=== PATIENT | female | born 1990 | race Caucasian/White ===

== ENCOUNTER 2017-05-17 21:06 | Emergency (ER) | payer OTHER ==
[2017-05-17] MEDS ORDERED: Sodium Chloride 0.9% 1,000 ML IV ONE (21:35)
[2017-05-17 21:43] LABS: RBC URINE 1 /hpf (0-3); TRANSITIONAL EPITHIAL < 1 /hpf (0-3); URINE BACTERIA RARE (<OCC); URINE BILIRUBIN NEGATIVE (NEGATIVE); URINE BLOOD NEGATIVE (NEGATIVE); URINE COLOR Yellow (YELLOW); URINE GLUCOSE (UA) NORMAL (Normal); URINE KETONE NEGATIVE (NEGATIVE); URINE LEUKOCYTE ESTERASE NEG Leu/uL (Negative); URINE PROTEIN NEGATIVE (NEGATIVE); URINE UROBILINOGEN NORMAL mg/dL (0.2-1.0); WBC URINE 1 /hpf (0-5)
[2017-05-17 22:05] LABS: BASO # 0.1 K/uL (0.0-0.2); BASO % 0.5 % (0.0-2.0); EOS # 0.1 K/uL (0.0-0.7); LYMPH # 4.6 K/uL (1.0-4.3); LYMPH % 42.4 % (20.0-40.0); MEAN CELL VOLUME 90.4 fL (81.0-99.0); MEAN CORPUSCULAR HEMOGLOBIN 31.4 pg (27.0-31.0); MEAN CORPUSCULAR HGB CONC 34.7 g/dL (33.0-37.0); MEAN PLATELET VOLUME 9.7 fL (7.2-11.7); MONO # 0.7 K/uL (0.0-0.8); MONO % 6.4 % (0.0-10.0); NRBC % 0.1 % (0.0-2.0); RED CELL DISTRIBUTION WIDTH 12.4 % (11.5-14.5); WHITE BLOOD COUNT 10.9 K/uL (4.8-10.8)
[2017-05-17 22:14] LABS: CHLORIDE 104 mmol/L (98-107); POTASSIUM 3.5 mmol/L (3.6-5.2); SODIUM 139 mmol/L (132-148)
[2017-05-17 22:16] LABS: BILIRUBIN,TOTAL 0.5 mg/dL (0.2-1.3); CARBON DIOXIDE 21 mmol/L (22-30); GFR AFRICAN-AMERICAN > 60
[2017-05-17 22:17] LABS: ALB/GLOB RATIO 1.2 (1.0-2.1); ALKALINE PHOSPHATASE 104 U/L (38-126); ALT/SGPT 27 U/L (9-52); AST/SGOT 31 U/L (14-36); BLOOD UREA NITROGEN 11 mg/dL (7-17); CALCIUM 8.7 mg/dl (8.6-10.4); GLUCOSE,RANDOM 92 mg/dL (65-105); TOTAL PROTEIN 7.3 g/dL (6.3-8.3)
--- NOTE | 2017-05-17 23:21 | C.PDOC ---
History Of Present Illness 26 y/o female c/o suprapubic abdominal pain, on and off for the last 2 weeks. Denies dysuria, hematuria, nausea, vomiting, fever, cough, changes in PO intake , vaginal bleeding, or vaginal discharge. Patient unaware if she is . Time Seen by Provider: 05/17/17 21:35 Chief Complaint (Nursing): Abdominal Pain History Per: Patient History/Exam Limitations: no limitations Current Symptoms Are (Timing): Still Present Location Of Pain/Discomfort: Diffuse Radiation Of Pain To:: None Associated Symptoms: denies: Fever, Nausea, Vomiting, Diarrhea, Urinary Symptoms Recent travel outside of the [place]: No Abnormal Vaginal Bleeding: No Past Medical History Reviewed: Historical Data, Nursing Documentation, Vital Signs Vital Signs: Last Vital Signs Temp 98 F 05/17/17 23:48 Pulse 82 05/17/17 23:48 Resp 18 05/17/17 23:48 BP 112/70 05/17/17 23:48 Pulse Ox 97 05/18/17 00:25 - Medical History PMH: No Chronic Diseases Family History: States: Unknown Family Hx - Social History Hx Tobacco Use: No Hx Alcohol Use: No Hx Substance Use: No - Immunization History Hx Tetanus Toxoid Vaccination: No Hx Influenza Vaccination: No Hx Pneumococcal Vaccination: No Review Of Systems Except As Marked, All Systems Reviewed And Found Negative. Constitutional: Negative for: Fever, Chills Cardiovascular: Negative for: Chest Pain Respiratory: Negative for: Cough, Shortness of Breath Gastrointestinal: Positive for: Abdominal Pain. Negative for: Nausea, Vomiting , Diarrhea Genitourinary: Negative for: Hematuria, Vaginal Discharge, Vaginal Bleeding Skin: Negative for: Rash Physical Exam - Physical Exam Appears: Non-toxic, No Acute Distress Skin: Normal Color, Warm, Dry Head: Atraumatic, Normacephalic Oral Mucosa: Moist Chest: Symmetrical Cardiovascular: Rhythm Regular, No Murmur Respiratory: Normal Breath Sounds, No Rales, No Rhonchi, No Wheezing Gastrointestinal/Abdominal: Soft, No Tenderness, No Guarding, No Rebound Back: Normal Inspection, No CVA Tenderness Extremity: Normal ROM, Capillary Refill (< 2 sec. ) Neurological/Psych: Oriented x3, Normal Speech, Normal Cognition ED Course And Treatment - Laboratory Results Result Diagrams: 05/17/17 22:00 05/17/17 22:00 O2 Sat by Pulse Oximetry: 97 (RA) Pulse Ox Interpretation: Normal - CT Scan/US US TRANSVAGINAL Other Rad Studies (CT/US): Read By Radiologist, Radiology Report Reviewed CT/US Interpretation: FINDINGS: Gestation: A single intrauterine gestational sac is identified measuring 7.9 x 6.6 x 9.5 mm. The mean. gestational sac size is too small for dates. A well-formed yolk sac is present, measuring 1.9 mm. No. pole is identified. Placenta/amniotic fluid: Cannot be adequately evaluated due to the early gestational age. Uterus/cervix: As above. No myometrial mass. The cervix measures 3.6 cm, and is closed. Ovaries: Unremarkable in echogenicity and size. The right ovary measures 2.5 x 1.4 x 1.7 cm. The. left ovary measures 2.3 x 1.6 x 2.9 cm in. No mass. Free fluid: Free fluid is identified within the posterior cul-de-sac. IMPRESSION: Single intrauterine gestational sac, too small for dates. A well-formed yolk sac is present without a pole. Bloodwork, UA, ultrasound ordered and reviewed. Medical Decision Making Medical Decision Making: PLAN: Bloodwork, UA, ultrasound ordered and reviewed. PROGRESS: On reassessment, patient is resting comfortably, and is in no acute distress. Patient instructed to follow up with clinic/PMD within 1-2 days. Disposition - Disposition Referrals: [facility] [Outside] [facility] [Outside] [facility] [Outside] Disposition: HOME/ ROUTINE Disposition Time: 23:30 Condition: GOOD Additional Instructions: Thank you for letting us take care of you today. Your provider was Dr. Reynolds. You were treated for abdominal pain and . The emergency medical care you received today was directed at your acute symptoms. If you were prescribed any medication, please fill it and take as directed. It may take several days for your symptoms to resolve. Return to the Emergency Department if your symptoms worsen, do not improve, or if you have any other problems. Please contact your doctor or call one of the physicians/clinics you have been referred to that are listed on the Patient Visit Information form that is included in your discharge packet. Bring any paperwork you were given at discharge with you along with any medications you are taking to your follow up visit. Our treatment cannot replace ongoing medical care by a primary care provider (PCP) outside of the emergency department. Thank you for allowing the [facility] team to be part of your care today. Please start taking vitamins and follow up with the clinic for OB care. Instructions: Abdominal Pain in (ED) Forms: Gen Discharge Inst Niuean Print Language: SWEDISH - Clinical Impression Clinical Impression: - Scribe Statement The provider has reviewed the documentation as recorded by the Scribe SM Provider Attestation: All medical record entries made by the Jossue were at my direction and personally dictated by me. I have reviewed the chart and agree that the record accurately reflects my personal performance of the history, physical exam, medical decision making, and the department course for this patient. I have also personally directed, reviewed, and agree with the discharge instructions and disposition.
--- NOTE | 2017-05-17 23:29 | US ---
EXAM: US , Transabdominal and Transvaginal CLINICAL HISTORY: 26 years old, female; Screening exam; Other: R/O ectopic; 2 para 1 LMP: 04/14/2017. Serum beta-hCG is 7890 TECHNIQUE: Real-time transabdominal and transvaginal obstetrical ultrasound of the maternal pelvis and a first trimester with image documentation. Transvaginal imaging was used for better evaluation of the fetus and adnexa. COMPARISON: No relevant prior studies available. FINDINGS: Gestation: A single intrauterine gestational sac is identified measuring 7.9 x 6.6 x 9.5 mm. The mean gestational sac size is too small for dates. A well-formed yolk sac is present, measuring 1.9 mm. No pole is identified. Placenta/amniotic fluid: Cannot be adequately evaluated due to the early gestational age. Uterus/cervix: As above. No myometrial mass. The cervix measures 3.6 cm, and is closed. Ovaries: Unremarkable in echogenicity and size. The right ovary measures 2.5 x 1.4 x 1.7 cm. The left ovary measures 2.3 x 1.6 x 2.9 cm in. No mass. Free fluid: Free fluid is identified within the posterior cul-de-sac IMPRESSION: Single intrauterine gestational sac, too small for dates. A well-formed yolk sac is present without a pole. A small amount of free fluid within the posterior cul-de-sac.
[2017-05-17 23:49] VITALS: BP 112/70; PULSE 82; RESP 18; TEMP 98
[2017-05-18 00:25] VITALS: O2SAT 97
== END 2017-05-17 23:49 | disposition home or self-care (01) ==
LOC: C.ER 21:06
DX: O26.891 Other specified pregnancy related conditions, first trimester (principal); Z3A.00 Weeks of gestation of pregnancy not specified
CPT/HCPCS: 76805; 76817; 80053; 81001; 83690; 84702; 85025; 87086; 96360; 99285; J7040

== ENCOUNTER 2018-01-05 16:40 | Inpatient (IN) | payer MEDICAID, OTHER ==
--- NOTE | 2018-01-05 17:37 | OBADHP ---
Datetime: 01/05/2018 17:14 Admit Comment, IP Provider: Pt presents today for complaints of ROM since 5:00am. Nitrazine positive , no pooling. PT is GBS+. POBHx: 03/2009. Female PMH: + PPD, obesity, Chlamydia 2013 PSHx None PFHx: none Assessment: SROM @ 39 weeks. GBS+ 1) Admit 2) GBS+ : start iv abx 2) tachycardia. IV hydration for now. maternal temp 97 3) PROM: Admit induce labor. Pelvic Type - PN: Adequate Extremities - PN: Normal Abdomen - PN: Normal Back - PN: Normal Breast - PN: Normal Lungs - PN: Normal Heart - PN: Normal Thyroid - PN: Normal Neurologic - PN: Normal HEENT - PN: Normal General - PN: Normal Presentation-Admit: Vertex IP Fetus A Comments: tachycardia. 160s FHR - Baseline A Provider: 160 Membranes, Provider: Ruptured Contraction Comments Provider: none Comments, ACOG Physical Exam: bedside US done to confirm position on admission-> cephalic presentation. Gestation - Est Wks by US: 39.0 Pool Provider: Negative Nitrazine Provider: Positive Vital Signs Provider: Reviewed IP Chief Complaint: Suspected ruptured membranes NICHD Variability Prov Fetus A: Moderate 6-25bpm NICHD Accel Fetus A IP Provider: 15X15 FHR Category Provider Fetus A: Category I NICHD Decel Fetus A IP Provider: None Dilatation, Provider: 1 Effacement, Provider: 30 Station, Provider: -3 Genitourinary Exam: Normal DTRs - PN: Normal EGA AdmitDate IP: 39.1 IP Adm Impression: Term, intrauterine ; No Active Labor; Ruptured Membranes IP Admit Plan: Admit to unit; Initiate labor induction protocol
[2018-01-05 17:45] VITALS: BMI 26.1
[2018-01-05] MEDS ORDERED: Penicillin G 5 Million Unit Vial IVPB ONE ×2 (18:06→18:19)
[2018-01-05] MEDS ORDERED: Lactated Ringer's 1,000 ML IV SCH (18:15)
[2018-01-05] MEDS: Lactated Ringer's 1,000 ML IV SCH ×2 (18:30→20:57)
[2018-01-05 18:33] LABS: BASO % 0.5 % (0.0-2.0); EOS # 0.1 K/uL (0.0-0.7); EOS % 0.6 % (0.0-4.0); HEMOGLOBIN 12.8 g/dL (11.0-16.0); LYMPH # 2.4 K/uL (1.0-4.3); LYMPH % 29.6 % (20.0-40.0); MEAN CELL VOLUME 91.8 fL (81.0-99.0); MEAN CORPUSCULAR HEMOGLOBIN 31.6 pg (27.0-31.0); MEAN CORPUSCULAR HGB CONC 34.4 g/dL (33.0-37.0); MEAN PLATELET VOLUME 9.7 fL (7.2-11.7); MONO # 0.6 K/uL (0.0-0.8); MONO % 7.7 % (0.0-10.0); NEUT # 4.9 K/uL (1.8-7.0); NEUT % 61.6 % (50.0-75.0); RBC 4.06 Mil/uL (3.80-5.20); RED CELL DISTRIBUTION WIDTH 13.2 % (11.5-14.5)
[2018-01-05 18:45] LABS: ALBUMIN 3.4 g/dL (3.5-5.0); ALT/SGPT 11 U/L (9-52); AST/SGOT 24 U/L (14-36); BLOOD UREA NITROGEN 9 mg/dL (7-17); CALCIUM 8.7 mg/dl (8.6-10.4); GFR AFRICAN-AMERICAN > 60; GFR NON-AFRICAN AMERICAN > 60
--- NOTE | 2018-01-05 20:05 | OBPN ---
Datetime: 01/05/2018 17:14 IP Progress Plan Other: cervidil placed. IP Progress Impression: Reassuring heart rate; Rupture of membranes IP Informed Consent Obtain: Risks, Benefits and Alternatives Discussed IP Procedures: Sterile Vag Exam IP Progress Plan: Augmentation; Cervical Ripening Pool Provider: Negative Nitrazine Provider: Positive Membranes, Provider: Ruptured Contraction Comments Provider: irregular FHR - Baseline A Provider: 150s Gestation - Est Wks by US: 39.0 Presentation-Admit: Vertex IP Progress Note Comment: GBS+, first dose given at 6:30pm. SVE: /-3 irregular contractions. Min l insert cervidil. Vital Signs Provider: Reviewed NICHD Accel Fetus A IP Provider: 15X15 FHR Category Provider Fetus A: Category I NICHD Variability Prov Fetus A: Moderate 6-25bpm Dilatation, Provider: 2 Effacement, Provider: 30 Station, Provider: -3 NICHD Decel Fetus A IP Provider: None
[2018-01-05] MEDS ORDERED: Oxytocin 30 UNIT 30 UNITS/500 ML BAG IV ONE (22:55)
[2018-01-05] MEDS ORDERED: Oxytocin 30 UNIT 30 UNITS/500 ML BAG IV SCH (23:00)
[2018-01-06] MEDS ORDERED: Bupivacaine HCl/FentaNYL Cit 100 ML EPI ONE (01:35)
--- NOTE | 2018-01-06 05:51 | OBDS ---
DELIVERY PERSONNEL Nurse Reversing Mill Roller Certified: N/A Delivery Doctor: Theo Carrera MD Scrub Nurse: N/A Sample Carrier: Tammy Delarosa RN Anesthesiologist: DR GASPAR Software Programmer: BRYN Resident: NCarlene MATERNAL INFORMATION Delivery Anesthesia: Epidural Medications in Delivery: PITOCIN Estimated Blood Loss (ml): 200 Placenta Cultured: No Maternal Complications: None Provider Comments: The head delivered, atraumatically, The anterior and posterior shoulder del ivered. The cord was cut clamped and fetus handed to awaiting nurses. The placenta was delivered inta ct with 3 vessel cord. There was a second degree perineal laceration that was repaired with 2.0 vicry l. All spongle needle and instrument count was correct at the end of the procedure. LABOR SUMMARY EDC: 01/11/2018 00:00 No. Babies in Womb: 1 Attempted: No Labor Anesthesia: Epidural LABOR INFORMATION Reason for Induction: Premature Rupture of Membranes Reason for Induction Other: PREMATURE RUPTURE OF MEMBRANES Onset of Labor: 01/05/2018 05:00 Complete Dilatation: 01/06/2018 05:10 Cervical Ripening Agents: Cervidil Oxytocin: Augmentation Group B Beta Strep: Positive Antibiotics # of Doses: 4 Antibiotics Time of Last Dose: 0500 MEMBRANES Membranes Rupture Method: Spontaneous Rupture of Membranes: 01/05/2018 05:00 Length of Rupture (hrs): 24.43 Amniotic Fluid Color: Clear Amniotic Fluid Amount: Scant Amniotic Fluid Odor: Normal STAGES OF LABOR Stage 1 hrs: 24 Stage 1 min: 10 Stage 2 hrs: 0 Stage 2 min: 16 Stage 3 hrs: 0 Stage 3 min: 6 Total Time in Labor hrs: 24 Total Time in Labor min: 32 VAGINAL DELIVERY Episiotomy: None Laceration Extension: Second Degree Laceration Type: Perineal Laceration Repair: Yes Laceration Repair Note: perineal laceration repaired with 2.0 vicryl X 1 Sponge Count Correct: Yes Sharps Count Correct: Yes BABY A INFORMATION Infant Delivery Date/Time: 01/06/2018 05:26 Method of Delivery: Vaginal Born in Route : No : N/A Forceps: N/A Vacuum Extraction: N/A Shoulder Dystocia : No SHOULDER DYSTOCIA BABY A Delivery Date/Time: 01/06/2018 05:26 PRESENTATION/POSITION BABY A Presentation: Cephalic Cephalic Presentation: Vertex Breech Presentation: N/A PLACENTA INFORMATION BABY A Placenta Delivery Time : 01/06/2018 05:32 Placenta Method of Delivery: Spontaneous Placenta Status: Delivered SCORES BABY A Heart Rate 1 min: >100 bpm Resp Effort 1 min: Good Cry Reflex Irritability 1 min: Cough or Sneeze or Pulls Away Muscle Tone 1 min: Active Motion Color 1 min: Body [place], Extremities Blue Resuscitation Effort 1 min: N/A SCORE 1 MIN: 9 Heart Rate 5 min: >100 bpm Resp Effort 5 min: Good Cry Reflex Irritability 5 min: Cough or Sneeze or Pulls Away Muscle Tone 5 min: Active Motion Color 5 min: Body [place], Extremities Blue Resuscitation Effort 5 min: N/A SCORE 5 MIN: 9 INFORMATION BABY A Gestational Age at Delivery: 39.2 Gestational Status: Term Infant Outcome : Liveborn Infant Condition : Stable Infant Sex: Male IDENTIFICATION/MEDS BABY A ID Band Number: [id number] ID Band Location: Left Leg; Left Arm Sensor Applied: Yes Sensor Number: [id number] Sensor Location : Cord Clamp Vitamin K Given : Not Given Erythromycin Given: Not Given WEIGHT/LENGTH BABY A Birthweight (gms): 3630 Infant Weight (lb): 8 Infant Weight (oz): 0 Infant Length Inches: 20.00 Length cms: 50.8 CORD INFORMATION BABY A No. Cord Vessels: #3 Nuchal Cord : N/A Nuchal Cord Other: 0 True Knot: 0 Infant Suction: None ASSESSMENT BABY A Complications: None Complications Other: GBS+ Physical Findings at Delivery: Within Normal Limits Infant Respirations: Appears Normal Message Broker Developer/ALS Called : No Infant Care By: Maria ESQUIVEL RN Transferred To: Nursery
[2018-01-06] MEDS ORDERED: Oxycodone/Acetaminophen 5/325 mg Tab PO PRN (05:53)
[2018-01-06] MEDS ORDERED: Acetaminophen-Codeine 300/30 mg Tab PO PRN (05:53)
[2018-01-06] MEDS ORDERED: Benzocaine/Menthol 20%-0.5% Topical Spray (60 ml) TOP PRN (05:53)
[2018-01-06] MEDS ORDERED: Tdap Vaccine 0.5 ml Vial (10-64 yrs) IM ONE (05:53)
[2018-01-06] MEDS ORDERED: Varicella Virus Vaccine Inj SC ONE (05:53)
[2018-01-06] MEDS ORDERED: Measles, Mumps, and Rubella 0.5 ML VIAL SC ONE (05:53)
[2018-01-06] MEDS: Multiple Vitamins Tab PO SCH (13:16)
--- NOTE | 2018-01-07 09:19 | OBPN ---
Datetime: 01/05/2018 17:14 IP Progress Plan Other: cervidil removed @ 10:27pm. 50/-3. Start oxytocin IP Progress Note Comment: GBS+, second dose given. Pt checked /-3. Cervidil removed @ 10:27pm. s tart oxytocin.
[2018-01-07] MEDS: Multiple Vitamins Tab PO SCH (09:54)
[2018-01-07 11:16] LABS: BASO % 0.3 % (0.0-2.0); EOS % 0.4 % (0.0-4.0); HEMOGLOBIN 10.9 g/dL (11.0-16.0); LYMPH # 2.9 K/uL (1.0-4.3); LYMPH % 24.5 % (20.0-40.0); MEAN CELL VOLUME 92.4 fL (81.0-99.0); MEAN CORPUSCULAR HEMOGLOBIN 31.9 pg (27.0-31.0); MEAN CORPUSCULAR HGB CONC 34.5 g/dL (33.0-37.0); MEAN PLATELET VOLUME 9.6 fL (7.2-11.7); MONO # 0.7 K/uL (0.0-0.8); MONO % 5.6 % (0.0-10.0); NEUT # 8.2 K/uL (1.8-7.0); NEUT % 69.2 % (50.0-75.0); RBC 3.4 Mil/uL (3.80-5.20); RED CELL DISTRIBUTION WIDTH 13.4 % (11.5-14.5); WHITE BLOOD COUNT 11.9 K/uL (4.8-10.8)
[2018-01-08] MEDS ORDERED: Tdap Vaccine 0.5 ml Vial (10-64 yrs) IM ONE (10:15)
[2018-01-08] MEDS ORDERED: Measles, Mumps, and Rubella 0.5 ML VIAL SC ONE (10:15)
[2018-01-08] MEDS ORDERED: Varicella Virus Vaccine Inj SC ONE (10:15)
[2018-01-08] MEDS: Multiple Vitamins Tab PO SCH (10:58)
[2018-01-08 21:16] VITALS: BP 107/70; PULSE 90; RESP 18; TEMP 97; O2SAT 99
== END 2018-01-08 15:40 | disposition home or self-care (01) | DRG 775 ==
LOC: C.EROB 16:40 → C.4D 17:25 → C.4M 01-06 09:14
PROVIDERS: ADMIT Obstetrics & Gynecology; ATTEND Obstetrics & Gynecology
PROC: 10E0XZZ Delivery of Products of Conception, External Approach (ICD-10-PCS; principal; 2018-01-06)
PROC: 0KQM0ZZ Repair Perineum Muscle, Open Approach (ICD-10-PCS; 2018-01-06)
PROC: 3E0P7VZ Introduction of Hormone into Female Reproductive, Via Natural or Artificial Opening (ICD-10-PCS; 2018-01-06)
DX: O42.92 Full-term premature rupture of membranes, unspecified as to length of time between rupture and onset of labor (principal); Z37.0 Single live birth; O99.824 Streptococcus B carrier state complicating childbirth; O69.81X0 Labor and delivery complicated by cord around neck, without compression, not applicable or unspecified; O70.1 Second degree perineal laceration during delivery; O76 Abnormality in fetal heart rate and rhythm complicating labor and delivery; Z3A.39 39 weeks gestation of pregnancy

== ENCOUNTER 2019-01-04 11:44 | Emergency (ER) | payer MEDICAID, OTHER ==
[2019-01-04 11:53] VITALS: BMI 24.1
[2019-01-04 11:56] VITALS: BP 138/77; PULSE 81; RESP 18; TEMP 98.9; O2SAT 95
--- NOTE | 2019-01-04 15:19 | C.PDOC ---
History Of Present Illness 28 year old female presents to the ED complaining of headache for the last 5 days. Associated with bodyaches and throat pain ongoing for 3 days. Denies fever, chills, nausea, vomiting, diarrhea, chest pain, dizziness, nose congestion, or any other symptoms. Reports she has been taking Tylenol with minimal relief. Reports her child is also sick. Denies recent travels. HPI: Influenza Time Seen by Provider: 01/04/19 12:30 Chief Complaint: Flu-like Symptoms History Per: Patient Exam Limitations: no limitations Have you had recent travel within the past 21 days to any of the following countries: [place], [place], [place] or [place]?: No Onset/Duration Of Symptoms: Days (5) Symptoms include: headache, bodyaches, sore throat. denies: fever, cough, vomiting, diarrhea, chest pain, difficulty breathing Sick Contacts (Context): Family Member(s) Past Medical History Reviewed: Historical Data, Nursing Documentation, Vital Signs Vital Signs: Last Vital Signs Temp 98.9 F 01/04/19 11:53 Pulse 81 01/04/19 11:53 Resp 18 01/04/19 11:53 BP 138/77 01/04/19 11:53 Pulse Ox 95 01/04/19 11:53 - Medical History PMH: No Chronic Diseases Denies: Depression, Diabetes, HTN Surgical History: No Surg Hx - [facility] (01/05/18) DELIVERY OF PRODUCTS OF CONCEPTION, EXTERNAL APPROACH (01/05/18) REPAIR PERINEUM MUSCLE, OPEN APPROACH (01/05/18) Family History: States: No Known Family Hx - Social History Hx Tobacco Use: No Hx Alcohol Use: No Hx Substance Use: No - Immunization History Hx Tetanus Toxoid Vaccination: No Hx Influenza Vaccination: No Hx Pneumococcal Vaccination: No Review Of Systems Except As Marked, All Systems Reviewed And Found Negative. Constitutional: Positive for: Other (bodyaches ). Negative for: Fever, Chills ENT: Positive for: Throat Pain Cardiovascular: Negative for: Chest Pain Respiratory: Negative for: Cough Gastrointestinal: Negative for: Nausea, Vomiting, Abdominal Pain, Diarrhea Neurological: Positive for: Headache. Negative for: Dizziness Physical Exam - Physical Exam Appears: Well, Non-toxic, No Acute Distress Skin: Warm, Dry, No Rash Head: Normacephalic Eye(s): bilateral: Normal Inspection, PERRL, EOMI Ear(s): Bilateral: Normal Nose: Normal Oral Mucosa: Moist Tongue: Normal Appearing Lips: Normal Appearing Teeth: Normal Dentition Gingiva: Normal Appearing Throat: Erythema (mild), No Exudate Neck: Normal ROM, Supple Lymphatic: Normal Exam Chest: Symmetrical Cardiovascular: Rhythm Regular, No Friction Rub, No Murmur Respiratory: Normal Breath Sounds, No Rales, No Rhonchi, No Wheezing Gastrointestinal/Abdominal: Soft, No Tenderness Back: Normal Inspection, No CVA Tenderness Extremity: Normal ROM, No Tenderness, No Swelling Neurological/Psych: Oriented x3, Normal Speech, Normal Motor Gait: Steady Medical Decision Making Medical Decision Making: Plan - Motrin 600mg PO - Prednisone 40mg PO - Throat culture - Rapid Strep Group On re-examination, patient is resting comfortably in no acute distress. Patient reports improvement of symptoms. Patient feels comfortable going home and will be discharged. Patient given follow up instructions. Instructed to return to ER if symptoms worsen or new symptoms arise. - ECG O2 Sat by Pulse Oximetry: 95 (RA) Pulse Ox Interpretation: Normal Disposition - Disposition Referrals: [facility] [Outside] Disposition: HOME/ ROUTINE Disposition Time: 15:19 Condition: GOOD Additional Instructions: Follow up with the medical doctor within 1-2 days. Return if worsend. Prescriptions: Ibuprofen [Motrin] 1 tab PO TID PRN #30 tab PRN Reason: Pain Loratadine [Claritin] 10 mg PO DAILY #10 tab Instructions: Viral Syndrome (DC) Forms: [facility] ([place]) Print Language: SOUTH SUDANESE - Clinical Impression Clinical Impression: Influenza-like illness - PA / PARTNER MARKETING INTERN / Resident Statement MD/DO has reviewed & agrees with the documentation as recorded. - Scribe Statement The provider has reviewed the documentation as recorded by the Scribe Nancy Adames All medical record entries made by the Farzadibfaustino were at my direction and personally dictated by me. I have reviewed the chart and agree that the record accurately reflects my personal performance of the history, physical exam, medical decision making, and the department course for this patient. I have also personally directed, reviewed, and agree with the discharge instructions and disposition.
== END 2019-01-04 15:29 | disposition home or self-care (01) ==
LOC: C.ER 11:44
DX: J11.1 Influenza due to unidentified influenza virus with other respiratory manifestations (principal)